=== PATIENT | male | born 1980 ===

== ENCOUNTER 2018-04-07 20:30 | Emergency (ER) | payer OTHER ==
[~2018-04-07] VITALS: Ht 175.3 cm; Wt 74.8 kg
[2018-04-07] MEDS ORDERED: LIDOCAINE PF 2% 5 ML (XYLOCAINE) VIAL ONE (20:37)
[2018-04-07] MEDS ORDERED: TETANUS,DIPTH,PERTUSS P/F (BOOSTRIX) 0.5 ML VIAL IM STA (20:39)
--- NOTE | 2018-04-07 20:39 | ED Integumentary General ---
General Stated Complaint: CUT ON FOREHEAD Source: patient Exam Limitations: no limitations (NEFTALI VILLAGOMEZ MD) History of Present Illness Date Seen by Provider: Apr 07, 2018 Time Seen by Provider: 20:30 Initial Comments Here with report of laceration to the forehead. He was at work when he was working on a machine. Apparently the air hose came disconnected and when he pulled it back in the machine arm moved and hit him in the head. No loss of consciousness. Denies other injury. Has approximately 3 cm laceration in the area of the medial left brow. Denies eye injury or vision problems. Timing/Duration: just prior to arrival (proximally 30 minutes ago) Severity: mild Location: face Associated Symptoms: No fever, No headache (NEFTALI VILLAGOMEZ MD) Allergies and Home Medications Allergies Coded Allergies: No Known Drug Allergies (Unverified , 02/03/13) Patient Home Medication List Home Medication List Reviewed: Yes (NEFTALI VILLAGOMEZ MD) Review of Systems Review of Systems Constitutional: see HPI; No chills, No fever EENTM: No double vision, No vision loss Respiratory: no symptoms reported Cardiovascular: no symptoms reported Skin: see HPI, lesions; No rash Psychiatric/Neurological: No Symptoms Reported (NEFTALI VILLAGOMEZ MD) Past Wsqptjt-Hdzcpr-Mpeluf Hx Past Med/Social Hx: Reviewed Nursing Past Med/Soc Hx (NEFTALI VILLAGOMEZ MD) Patient Social History Alcohol Use: Denies Use Recreational Drug Use: No Smoking Status: Current Everyday Smoker Recent Foreign Travel: No Contact w/Someone Who Travel: No (NEFTALI VILLAGOMEZ MD) Immunizations Up To Date Tetanus Booster (TDap): Less than 5yrs Date of Influenza Vaccine: Feb 03, 2013 (NEFTALI VILLAGOMEZ MD) Past Medical History Surgeries: No Respiratory: No Cardiac: No Neurological: No Reproductive Disorders: No Sexually Transmitted Disease: No HIV/AIDS: No Gastrointestinal: No Musculoskeletal: No Endocrine: No Cancer: No Adverse Reaction/Blood Tranf: No (NEFTALI VILLAGOMEZ MD) Family Medical History Reviewed Nursing Family Hx (NEFTALI VILLAGOMEZ MD) No Pertinent Family Hx (NEFTALI VILLAGOMEZ MD) Physical Exam Vital Signs Vital Signs - First Documented 04/07/18 20:33 Temp 99.6 Pulse 88 Resp 15 B/P (MAP) 142/92 (109) Pulse Ox 99 O2 Delivery Room Air (JACOBO LONDON APRN) Vital Signs Capillary Refill : (NEFTALI VILLAGOMEZ MD) General Appearance: WD/WN, no apparent distress HEENT: PERRL/EOMI, pharynx normal Neck: non-tender, full range of motion, supple, normal inspection Cardiovascular: regular rate, rhythm, no murmur Respiratory: lungs clear, normal breath sounds Neurologic/Psychiatric: alert, oriented x 3 Skin: warm/dry Skin Problem Location: face Skin Problem Character: other (3 cm laceration to the left forehead medial aspect of left brow and extending upward from there. Bleeding controlled.) (NEFTALI VILLAGOMEZ MD) Procedures/Interventions Wound Location: Face Wound Length (cm): 2 Wound's Depth, Shape: linear, sub Q Wound Explored: clean Anesthesia: 1% Lidocaine Volume Anesthetic (ccs): 2 Suture: Prolene Suture Size: 5-0 Number of Sutures: 5 Layer Closure?: 1 Number Deep Layer Sutures: 0 Progress Taken Wil[place] area anesthetized with 2 mL of 2% lidocaine without epinephrine. Wound then scrubbed with chlorhexidine/saline solution. Wound then closed with 5 simple interrupted sutures size 5-0 Prolene. (JACOBO LONDON APRN) Progress/Results/Core Measures Results/Orders Medications Given in ED Current Medications Medications Dose Ordered Sig/Kuldip Route Start Time Stop Time Status Last Admin Dose Admin Lidocaine HCl 5 ml STK-MED ONCE .ROUTE 04/07/18 20:37 04/07/18 20:40 DC 04/07/18 20:42 5 ML (JACOBO LONDON APRN) Vital Signs/I&O 04/07/18 20:33 Temp 99.6 Pulse 88 Resp 15 B/P (MAP) 142/92 (109) Pulse Ox 99 O2 Delivery Room Air (JACOBO LONDON APRN) Progress Progress Note : Progress Note Seen and evaluated. Tetanus updated his last one was 5 years ago. Laceration repair by Jacobo London APRN. Discharged home with return precautions. Patient verbalize understanding instructions and agreement with plan. (NEFTALI VILLAGOMEZ MD) Departure Impression Primary Impression: Laceration of face Qualified Codes: S01.81XA - Laceration without foreign body of other part of head, initial encounter Disposition: 01 HOME, SELF-CARE Condition: Improved Departure-Patient Inst. Decision time for Depature: 20:42 (NEFTALI VILLAGOMEZ MD) Referrals: NO,LOCAL PHYSICIAN (PCP/Family) Primary Care Physician Patient Instructions: Laceration Repair With Stitches (DC) Add. Discharge Instructions: Sutures out in 5-7 days. He may return here for suture removal. You may use antibiotic ointment and Band-Aid over the wound twice daily for the next 3 or 4 days and then as needed. You may cover wound with dry Band-Aid after that. It is okay to shower but do not scrub vigorously. You may use Tylenol/ acetaminophen 1000 mg every 8 hours as needed for pain. You may use ibuprofen 600 mg every 8 hours as needed for pain. Return for worse pain, swelling, foul- smelling drainage, increasing redness, fever or other concerns as needed. Scripts No Active Prescriptions or Reported Meds NEFTALI VILLAGOMEZ MD Apr 07, 2018 20:39 JACOBO LONDON APRN Apr 07, 2018 20:54
[2018-04-07 21:00] VITALS: BP 142/92
--- OUTSIDE RECORDS SUMMARY | 2018-04-08 04:26 | XMS REPORT | Continuity of Care Document ---
Author Author [facility] Organization [facility] Address Unknown Phone Unavailable Care Team Providers Care Nurse Consultant Name Role Phone NO, LOCAL PHYSICIAN PP Unavailable Insurance Providers Payer Name Policy Number Subscriber Name Relationship [employer] [place] [employer] [id number] [employer], [place] 08 Employer Advance Directives Directive Response Recorded Date Advance Directives N 02/03/13 2:17am Problems No Known Problems or Medical conditions. Social History History Response Recorded Date/Time Alcohol Use Denies Use 02/03/13 2:17am Recreational Drug Use N 02/03/13 2:17am Sexually Transmitted Disease N 02/03/13 2 :17am HIV/AIDS N 02/03/13 2:17am Allergies, Adverse Reactions, Alerts Allergen Type Severity Reaction Last Updated No Known Drug Allergies 02/03/13 Medications Medication Dose Units Route Sig Qty Days No Active Prescriptions or Reported Medications Immunizations Name Given Type Tdap 02/03/13 A Response Recorded Date/Time Status not known Unknown Results No Known Relevant Diagnostic Tests, Laboratory Data and/or Discharge Summary. Encounters Encounter Location Date/Time Registered Emergency Room [facility] 02/03/13 1:56am Departed Emergency Room [facility] 12 :00am
--- OUTSIDE RECORDS SUMMARY | 2018-04-08 04:26 | XMS REPORT | Continuity of Care Document ---
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 Social History History Response Recorded Date/Time Alcohol Use Denies Use 02/13/13 5:05pm Recreational Drug Use N 02/13/13 5:05pm Sexually Transmitted Disease N 02/03/13 2 :17am HIV/AIDS N 02/03/13 2:17am Allergies, Adverse Reactions, Alerts Allergen Type Severity Reaction Last Updated No Known Drug Allergies 02/03/13 Medications Medication Dose Units Route Sig Qty Days No Active Prescriptions or Reported Medications Immunizations Name Given Type Date of Influenza Vaccine 02/03/13 H Tdap 02/03/13 A Response Recorded Date/Time Status not known Unknown Results No Known Relevant Diagnostic Tests, Laboratory Data and/or Discharge Summary. Encounters Encounter Location Date/Time Departed [facility] 11/19 4:44pm
--- OUTSIDE RECORDS SUMMARY | 2018-04-08 04:26 | XMS REPORT | Continuity of Care Document ---
Author Author [facility] Organization [facility] Address Unknown Phone Unavailable Allergies There is no data. Medications There is no data. Problems There is no data. Procedures There is no data. Results There is no data. Encounters [facility] No. Visit Date/Time Discharge Status Pt. Type Provider Facility Loc./Unit Complaint [id number] 02/13/2013 16:44:00 02/13/2013 17:14:00 [facility] [id number] 02/03/2013 01:56:00 02/03/2013 04:56:00 [facility] Emergency
== END 2018-04-07 21:02 | disposition home or self-care (01) ==
LOC: EDUNIT# 20:30 → ER 20:31
DX: S01.81XA Laceration without foreign body of other part of head, initial encounter (principal); F17.200 Nicotine dependence, unspecified, uncomplicated; W22.09XA Striking against other stationary object, initial encounter; Y92.59 Other trade areas as the place of occurrence of the external cause; Y99.0 Civilian activity done for income or pay
CPT/HCPCS: 90471; 90715